=== PATIENT | female | born 1980 | race Hispanic/Latino ===

== ENCOUNTER 2020-10-10 12:51 | Emergency (ER) | payer SELFPAY ==
[~2020-10-10] VITALS: Ht 160 cm; Wt 73.5 kg
[2020-10-10] MEDS ORDERED: KETOROLAC TROMETHAMINE 30 MG/ML VIAL IV STA (13:20)
[2020-10-10] MEDS ORDERED: DONNATAL/LIDOCAINE/MAALOX 30 ML SUSP PO ONE (13:30)
[2020-10-10] MEDS ORDERED: LIDOCAINE VISC 2% SOLN 15 ML UDC ONE (13:51)
[2020-10-10] MEDS ORDERED: BELLADONNA ALK/PHENOBARBITAL 5 ML UDC ONE (13:52)
--- NOTE | 2020-10-10 13:57 | NUR ---
Updated pt/family.
--- NOTE | 2020-10-10 15:36 | Diagnostic Imaging Report ---
EXAM: CT ABDOMEN AND PELVIS WITHOUT CONTRAST FOR RENAL STONES CLINICAL INDICATION: Left flank pain TECHNIQUE: CT abdomen and pelvis was performed, without IV or oral contrast, as per department renal stone protocol. Axial, sagittal, and coronal reconstructions were obtained. IV CONTRAST: Not administered, limiting sensitivity of this exam for evaluation of solid visceral organs, vascular structures, and retroperitoneum. ORAL CONTRAST:Not administered, limiting sensitivity of this exam for evaluation of bowel, retroperitoneum, and intraabdominal fluid collections. RADIATION DOSE REDUCTION: This exam was performed according to the departmental dose-optimization program which includes automated exposure control, adjustment of the mA and/or kV according to patient size and/or use of iterative reconstruction technique. COMPARISON: None FINDINGS: LOWER CHEST: No pathologic process in imaged portion of lower chest RIGHT KIDNEY: Normal size and contour. No nephrolithiasis. No hydronephrosis. RIGHT URETER: Normal course and caliber. No ureterolithiasis. LEFT KIDNEY: Normal size and contour. No nephrolithiasis. No hydronephrosis. LEFT URETER: Normal course and caliber. No ureterolithiasis. URINARY BLADDER: Unremarkable. No calculi. LIVER: No pathologic process. GALLBLADDER: Unremarkable BILE DUCTS: No pathologic process. PANCREAS: No pathologic process. SPLEEN: No pathologic process. ADRENALS: No pathologic process. GASTROINTESTINAL TRACT: No pathologic process. APPENDIX: Status post appendectomy] LYMPH NODES: No lymphadenopathy. PERITONEUM/MESENTERY: No free air, significant free fluid, mass or fluid collection. VESSELS: No vascular abnormality. ADDITIONAL RETROPERITONEAL FINDINGS: None. REPRODUCTIVE ORGANS: No pathologic process. A 2.6 cm left ovarian cyst likely physiologic. Right ovary is not well-visualized. ABDOMINAL AND PELVIC HOBBS: No pathologic process. MUSCULOSKELETAL: No pathologic process. ADDITIONAL FINDINGS: None. IMPRESSION: No evidence of urinary tract calculi. No other significant abnormality on this exam. Standardized Report: [id number]. Signed by: Arron Christian MD on 10/10/2020 3:33 PM
--- NOTE | 2020-10-10 17:58 | Emergency Department Note ---
History of Present Illnes History of Present Illness Chief Complaint: Abdominal Complaints History of Present Illness This is a 40 year old female with 3 week hx of RUQ pain. +N, no V, no diarrhea, + constipation (last BM 2 days ago and hard), no melena, no hematachezia, no dysuria, no hematuria. TMax 99.0. No CP, SOB, Cough. Saw PCP today who sent here for eval. Historian: Patient, Family Member Arrival Mode: Car Cephalometric Technician Required: Yes Onset (how long ago): week(s) (3) Location: [facility] Quality: "bloating" Radiation: Reports non-radiation Severity: unable to specify Onset quality: gradual Duration (how long): week(s) (3) Timing of current episode: intermittent, other (intermittant at night only after lays down until last night and since then has been constant) Progression: worsening Chronicity: new Context: Reports other (Recent dx of DM: patient developed polyuria so started taking husbands metformin and glypizide. Did not check BS. Last med was last PM. BS today at PCP was 280.); Denies recent illness, Denies trauma/injury Exacerbating factors: other Associated symptoms: Reports other (no loss of taste/smell); Denies chest pain, Denies cough, Denies fever/chills, Denies headaches, Denies shortness of breath Past Medical/Family History Physician Review I have reviewed the patient's past medical and family history. Any updates have been documented here. Past Medical History Recent Fever: No Clinical Suspicion of Infectio: No New/Unexplained Change in Ment: No Past Medical History: None Past Surgical History: Appendectomy Social History Smoking Cessation: Never Smoker Counseling Performed: No Alcohol Use: Occasional Any Illegal Drug Use: No Physically hurt or threatened: No Other Any Pre-Existing Lines (PICC,: No Review of Systems Review of Systems Constitutional: Reports fever (Tmax 99.0); Denies chills EENTM: Denies nose congestion, Denies throat pain Cardiovascular: Denies chest pain Respiratory: Denies cough, Denies dyspnea Gastrointestinal: Reports as per HPI, Reports constipation, Reports nausea; Denies diarrhea, Denies vomiting Genitourinary: Reports frequency; Denies dysuria, Denies hematuria Musculoskeletal: Denies back pain Integumentary: Denies rash Neurological: Denies headache Endocrine: Reports increased thirst, Reports increased urination Hematological/Lymphatic: Denies easy bruising Physical Exam Related Data Allergies: Coded Allergies: No Known Allergies (Unverified , 10/10/20) Triage Vital Signs Vital Signs Date Time Temp Pulse Resp B/P (MAP) Pulse Ox O2 Delivery O2 Flow Rate FiO2 10/10/20 13:24 98.3 91 16 124/93 100 Room Air Physical Exam CONSTITUTIONAL Constitutional: Present well-developed, Present well-nourished HENT HENT: Present normocephalic, Present atraumatic, Present oropharynx clear/moist, Present nose normal HENT L/R: Present left ext ear normal, Present right ext ear normal EYES Eyes: Reports PERRL, Reports conjunctivae normal NECK Neck: Present ROM normal PULMONARY Pulmonary: Present effort normal, Present breath sounds normal CARDIOVASCULAR Cardiovascular: Present regular rhythm, Present heart sounds normal, Present capillary refill normal, Present normal rate GASTROINTESTINAL Abdominal: Present soft, Present nontender (pain not worse with palpation), Present bowel sounds normal, Present other (negative posias, illiac, davies's, rovsing's signs); Absent distension, Absent tender, Absent guarding, Absent mass, Absent rebound, Absent left CVA tenderness, Absent right CVA tenderness GENITOURINARY SKIN Skin: Present warm, Present dry MUSCULOSKELETAL Musculoskeletal: Present ROM normal NEUROLOGICAL Neurological: Present alert, Present oriented x 3, Present no gross motor or sensory deficits PSYCHOLOGICAL Psychological: Present mood/affect normal, Present judgement normal Results Laboratory Lab results reviewed: Yes Laboratory comments HCG negative. UA: neg nit/roland/josefina. Glu 500, ket > 160, blood trace. LFTs WNL, Gail WNL. Glu 230, Cr 0.5, WBC 6.8 Imaging Imaging results reviewed: Yes Imaging Comments EXAM: CT ABDOMEN AND PELVIS WITHOUT CONTRAST FOR RENAL STONES CLINICAL INDICATION: Left flank pain TECHNIQUE: CT abdomen and pelvis was performed, without IV or oral contrast, as per department renal stone protocol. Axial, sagittal, and coronal reconstructions were obtained. IV CONTRAST: Not administered, limiting sensitivity of this exam for evaluation of solid visceral organs, vascular structures, and retroperitoneum. ORAL CONTRAST:Not administered, limiting sensitivity of this exam for evaluation of bowel, retroperitoneum, and intraabdominal fluid collections. RADIATION DOSE REDUCTION: This exam was performed according to the departmental dose-optimization program which includes automated exposure control, adjustment of the mA and/or kV according to patient size and/or use of iterative reconstruction technique. COMPARISON: None FINDINGS: LOWER CHEST: No pathologic process in imaged portion of lower chest RIGHT KIDNEY: Normal size and contour. No nephrolithiasis. No hydronephrosis. RIGHT URETER: Normal course and caliber. No ureterolithiasis. LEFT KIDNEY: Normal size and contour. No nephrolithiasis. No hydronephrosis. LEFT URETER: Normal course and caliber. No ureterolithiasis. URINARY BLADDER: Unremarkable. No calculi. LIVER: No pathologic process. GALLBLADDER: Unremarkable BILE DUCTS: No pathologic process. PANCREAS: No pathologic process. SPLEEN: No pathologic process. ADRENALS: No pathologic process. GASTROINTESTINAL TRACT: No pathologic process. APPENDIX: Status post appendectomy] LYMPH NODES: No lymphadenopathy. PERITONEUM/MESENTERY: No free air, significant free fluid, mass or fluid collection. VESSELS: No vascular abnormality. ADDITIONAL RETROPERITONEAL FINDINGS: None. REPRODUCTIVE ORGANS: No pathologic process. A 2.6 cm left ovarian cyst likely physiologic. Right ovary is not well-visualized. ABDOMINAL AND PELVIC HOBBS: No pathologic process. MUSCULOSKELETAL: No pathologic process. ADDITIONAL FINDINGS: None. IMPRESSION: No evidence of urinary tract calculi. No other significant abnormality on this exam. Standardized Report: [id number]. Signed by: Arron Christian MD on 10/10/2020 3:33 PM Assessment & Plan Medical Decision Making MDM Differential dx includes, but not limited to: Ectopic (HCG negative), Kidney stone, SBO, diverticulitis, colitis, GERD, gastritis, pancreatitis, AAA, cholycystitis, cholithiasis, renal colic, billiary colic, chron's, IBD, Ulcerative Colitis, UTI, pyelonephritis. UA neg for infection. CT negative. Afebrile, WBC WNL. Gail WNL, LFT's WNL. Pain resolved after GI cocktail. Given pain worse when lay flat and resolved with GI cocktail, suspect GERD. Will start on PPI and F/U PCP. Assessment & Plan Final Impression: (1) Abdominal pain (2) GERD (gastroesophageal reflux disease) Depart Disposition: HOME, SELF-CARE Last Vital Signs Date Time Temp Pulse Resp B/P (MAP) Pulse Ox O2 Delivery O2 Flow Rate FiO2 10/10/20 13:24 98.3 91 16 124/93 100 Room Air Medications in the ED Ketorolac Tromethamine 30 mg ONCE STAT IV ; Start 10/10/20 at 13:20; Stop 10/10/20 at 13:21; Status UNV Belladonna Alkaloids/ Phenobarbital 55 ml ONCE ONCE PO ; Start 10/10/20 at 13:30; Stop 10/10/20 at 13:31; Status UNV Lidocaine HCl 15 ml STK-MED ONCE .ROUTE ; Start 10/10/20 at 13:51; Stop 10/10/20 at 13:45; Status DC Belladonna Alkaloids/ Phenobarbital 10 ml STK-MED ONCE .ROUTE ; Start 10/10/20 at 13:52; Stop 10/10/20 at 13:45; Status DC INDY GRIDER MD Oct 10, 2020 14:04
== END 2020-10-10 16:19 | disposition home or self-care (01) ==
LOC: FSED 13:10
DX: R10.32 Left lower quadrant pain (principal); K21.9 Gastro-esophageal reflux disease without esophagitis; R73.9 Hyperglycemia, unspecified; R11.0 Nausea; M54.5 Low back pain
CPT/HCPCS: 74176; 80048; 80076; 81003; 81025; 85025; 99284; J1885